=== PATIENT | male | born 2000 | race Caucasian/White ===

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

== ENCOUNTER 2021-02-01 07:13 | Emergency (ER) | payer SELFPAY ==
--- OUTSIDE RECORDS SUMMARY | 2021-02-01 07:16 | XMS REPORT | Continuity of Care Document ---
:2000 Author Organization [facility] t Address [address] [place] [address] Care Team Providers Name Role Phone Nurse, Urgent Attending Clinician Unavailable Lab, Fam Pob I Attending Clinician Unavailable Ebrahim GROUNDS AND NURSERY SPECIALIST Attending Clinician EBRAHIM Attending Clinician Unavailable Doctor Unassigned, Name Attending Clinician Unavailable Pob, Lab Main Attending Clinician Unavailable Rodriguez MD Attending Clinician RODRIGUEZ Attending Clinician Unavailable Payers Payer Name Policy Type Policy Number Effective Date Expiration Date S ource Problems This patient has no known problems. Allergies, Adverse Reactions, Alerts Allergy Allergy Status Severity Reaction(s) Onset Inactive Treating Comm ents Source Name Type Date Date Clinician NO KNOWN Drug Active Univers ALLERGIE Class ity of S [facility] Social History Social Habit Start Date Stop Date Quantity Comments Source Sex [facility] Exposure to SARS-CoV-2 Not sure [facility] [place] (event) [facility] Smoking Status Start Date Stop Date Source Unknown if ever smoked Universit y [facility] Medications Ordered Filled Start Stop Current Ordering Indication Dosage Frequency Signature Comments Components Source Medication Medication Date Date Medication? Clinician (SIG) Name Name forest Yes Take 2 Univ ers n 4-04 tabs day ity of (ZITHROMAX) 00:00: 1Take 1 Ronal as 250 mg 00 tab days Medical tablet 2-5 Branch albuterol Yes 2{puff} Inhale 2 U nivers (VENTOLIN) 4-04 Puffs ity of 90 00:00: every 6 [place] mcg/actuati 00 (six) Medical on inhaler hours as Branc h needed for Wheezing or Shortness of Breath. lioneli Yes Take 2 Univ ers n 4-04 tabs day ity of (ZITHROMAX) 00:00: 1Take 1 Ronal as 250 mg 00 tab days Medical tablet 2-5 Branch albuterol Yes 2{puff} Inhale 2 U nivers (VENTOLIN) 4-04 Puffs ity of 90 00:00: every 6 [place] mcg/actuati 00 (six) Medical on inhaler hours as Branc h needed for Wheezing or Shortness of Breath. azithghadayci Yes Take 2 Univ ers n 4-04 tabs day ity of (ZITHROMAX) 00:00: 1Take 1 Ronal as 250 mg 00 tab days Medical tablet 2-5 Branch albuterol Yes 2{puff} Inhale 2 U nivers (VENTOLIN) 4-04 Puffs ity of 90 00:00: every 6 [place] mcg/actuati 00 (six) Medical on inhaler hours as Branc h needed for Wheezing or Shortness of Breath. azithromyci Yes Take 2 Univ ers n 4-04 tabs day ity of (ZITHROMAX) 00:00: 1Take 1 Ronal as 250 mg 00 tab days Medical tablet 2-5 Branch albuterol Yes 2{puff} Inhale 2 U nivers (VENTOLIN) 4-04 Puffs ity of 90 00:00: every 6 [place] mcg/actuati 00 (six) Medical on inhaler hours as Branc h needed for Wheezing or Shortness of Breath. azithromyci Yes Take 2 Univ ers n 4-04 tabs day ity of (ZITHROMAX) 00:00: 1Take 1 Ronal as 250 mg 00 tab days Medical tablet 2-5 Branch albuterol Yes 2{puff} Inhale 2 U nivers (VENTOLIN) 4-04 Puffs ity of 90 00:00: every 6 [place] mcg/actuati 00 (six) Medical on inhaler hours as Branc h needed for Wheezing or Shortness of Breath. Procedures This patient has no known procedures. Encounters Start End Encounter Admission Attending Care Care Encounter Source Date/Time Date/Time Type Type Clinicians Facility Department ID 2019-09-15 2019-09-15 Letter Nurse, Ronal [facility] [id number] [facility] [place] [facility] 00:00:00 00:00:00 (Out) Urgent HEALTH [id number] [id number] [facility] [phone] [facility] Primary & [address] Specialty Care 2019-09-14 2019-09-14 Laboratory Lab, Adc Fam Piper I [facility] [id number] Univers 12:38:57 12:58:57 Only Douglas Abreu [facility] [id number] ity of [place] [id number] Ronal as Professio [phone] Ar dical nal [address] One 2019-09-14 2019-09-14 Outpatient R [facility] [id number] Univers 12:40:00 12:40:00 ity of [facility] 2019-09-14 2019-09-14 Outpatient R NOYKAMERONLakshmi [facility] [id number] Univers 12:40:00 12:40:00 [facility] ity of [facility] 2019-09-14 2019-09-14 Letter Doctor RY [id number] Univers 00:00:00 00:00:00 (Out) Unassigned, JASON [id number] [place]y of [place] [facility] [id number] Ronal as [phone] [facility] [address] 2019-06-13 2019-06-13 Customer Marketing Manager Piper, Mellisa Lab Main [facility] [id number] Univers 17:00:21 17:15:21 Visit Jace Rodriguez [id number] ity of [id number] Professio [phone] Ar dical [facility] [address] 2019-06-13 2019-06-13 Outpatient R JACE RODRIGUEZ [facility] [id number] Univers 17:00:00 17:00:00 ity of [facility] Results This patient has no known results.
[2021-02-01] MEDS ORDERED: ONDANSETRON 4 MG/2 ML VIAL ONE (07:39)
[2021-02-01] MEDS ORDERED: FAMOTIDINE 20 MG/2 ML VIAL IV ONE (07:40)
[2021-02-01] MEDS ORDERED: NA CHLORIDE 0.9% 1,000 ML ONE (07:40)
[2021-02-01 07:54] LABS: Absolute Lymphocytes (CBC) 0.8 K/uL (0.7-4.9); Basophils % 0.6 % (0-1.3); Hematocrit 43.3 % (39.6-49.0); MPV 9.7 fL (7.6-11.3); RBC Red Blood Cell Count 4.56 M/uL (4.33-5.43)
[2021-02-01 08:10] LABS: Bilirubin Direct 0.3 mg/dL (0-0.2); Potassium 3.3 mmol/L (3.5-5.1); Protein, Total 7.7 g/dL (6.4-8.2)
--- NOTE | 2021-02-01 08:40 | RAD REPORT ---
EXAM DESCRIPTION: Yan Single View02/01/2021 7:59 am CLINICAL HISTORY: Epigastric pain COMPARISON: 2017 FINDINGS: The lungs appear clear of acute infiltrate. The heart is normal size IMPRESSION: No acute abnormalities displayed
[2021-02-01 08:56] LABS: Urine Blood Trace-intact (Negative); Urine Glucose Negative (Negative); Urine Protein Negative (Negative); Urine pH 6.5 (5.0-7.0)
--- NOTE | 2021-02-01 08:58 | ER ---
Nurse's Notes [facility] Name: Delio Crum Age: 20 yrs Sex: Male : 2000 Arrival Date: 02/01/2021 Time: 07:13 Bed 20 Private MD: Diagnosis: Epigastric pain;Nausea with vomiting, unspecified Presentation: 02/01 07:18 Chief complaint: Patient states: he drank alcohol Sunday, a reported 18 beers. Patient ap3 states that he didn't feel well yesterday, stayed home from work, and woke up this morning with continued abdominal pain. Patient denies N/V/D. Coronavirus screen: At this time, the client does not indicate any symptoms associated with coronavirus-19. Ebola Screen: No symptoms or risks identified at this time. Initial Sepsis Screen: Does the patient meet any 2 criteria? No. Patient's initial sepsis screen is negative. Does the patient have a suspected source of infection? No. Patient's initial sepsis screen is negative. Risk Assessment: Do you want to hurt yourself or someone else? Patient reports no desire to harm self or others. Onset of symptoms was January 31, 2021. 07:18 Method Of Arrival: Ambulatory ap3 07:18 Acuity: FRANCISCO 3 ap3 Triage Assessment: 07:20 General: Appears in no apparent distress. Behavior is calm, cooperative. Pain: ap3 Complains of pain in epigastric area Pain does not radiate. Pain currently is 7 out of 10 on a pain scale. at worst was 9 out of 10 on a pain scale. Quality of pain is described as aching, crampy, Pain began gradually, 1 day ago. Is intermittent. Neuro: Level of Consciousness is awake, alert, obeys commands, Oriented to person, place, time, situation, Appropriate for age. Respiratory: Airway is patent Respiratory effort is even, unlabored. GI: Abdomen is flat, non-distended, Reports upper abdominal pain, Patient currently denies diarrhea, nausea, vomiting. Historical: - Allergies: 07:20 No Known Allergies; ap3 - Home Meds: 07:20 None [Active]; ap3 - PMHx: 07:20 None; ap3 - PSHx: 07:20 None; ap3 - Immunization history:: Client reports having NOT received the Covid vaccine. - Social history:: Smoking status: Patient denies any tobacco usage or history of. Patient uses alcohol. Screenin:22 Abuse screen: Denies threats or abuse. Nutritional screening: No deficits noted. ap3 Tuberculosis screening: No symptoms or risk factors identified. Fall Risk None identified. Assessment: 07:25 General: Appears in no apparent distress. Pain: Complains of pain in abdomen. GI: Bowel ellis sounds Abd is soft Abd is non tender Reports lower abdominal pain, nausea. 08:49 Reassessment: Patient is alert, oriented x 3, equal unlabored respirations, skin jg9 warm/dry/pink. Patient states feeling better. Patient states symptoms have improved. Vital Signs: 07:18 BP 138 / 86; Pulse 72; Resp 17; Temp 97.9; Pulse Ox 100% on R/A; Weight 90.72 kg; ap3 Height 5 ft. 11 in. (180.34 cm); Pain 9/10; 08:22 BP 147 / 87; Pulse 79; Resp 18; Pulse Ox 100% on R/A; ellis 07:18 Body Mass Index 27.89 (90.72 kg, 180.34 cm) ap3 ED Course: 07:13 Patient arrived in ED. am2 07:20 Triage completed. ap3 07:22 Arm band placed on right wrist. ap3 07:24 Georges Lazaro PA is PHCP. cp 07:24 Georges Theodore MD is Attending Physician. cp 07:24 Ifeoma Bolanos is Primary Nurse. ellis 07:25 Patient has correct armband on for positive identification. Bed in low position. ellis 07:25 No provider procedures requiring assistance completed. ellis 07:44 Basic Metabolic Panel Sent. ww 07:44 Basic Metabolic Panel Sent. ww 07:44 CBC with Diff Sent. ww 07:44 Hepatic Function Sent. ww 07:44 Lipase Sent. ww 07:44 Initial lab(s) drawn, by in, sent to lab. Inserted saline lock: 20 gauge in left ww antecubital area, using aseptic technique. Blood collected. 07:56 CBC with Diff Sent. ellis 07:56 Hepatic Function Sent. ellis 07:56 Lipase Sent. ellis 07:57 Basic Metabolic Panel Sent. ellis 07:59 XRAY Chest (1 view) In Process Unspecified. EDMS 08:34 US Abdomen Limited In Process Unspecified. EDMS 08:49 No apparent distress. Resting quietly. jg9 08:49 Urine collected: clean catch specimen, clear. jg9 09:23 IV discontinued, intact, Pressure dressing applied. ellis Administered Medications: 07:56 Drug: NS 0.9% 1000 ml Route: IV; Rate: 1 bolus; Site: left antecubital; ellis 08:12 Follow up: Response: No adverse reaction; IV Status: Completed infusion ellis 07:56 Drug: Zofran (Ondansetron) 4 mg Route: IVP; Site: left antecubital; ellis 08:00 Follow up: Response: No adverse reaction ellis 07:56 Drug: Pepcid (famotidine) 20 mg Route: IVP; Site: left antecubital; ellis 08:00 Follow up: Response: No adverse reaction ellis 09:09 Drug: Potassium Effervescent Tablet 50 mEq Route: PO; ellis 09:09 Follow up: Response: No adverse reaction ellis Outcome: 08:57 Discharge ordered by . rey 09:24 Patient left the ED. ellis Signatures: Dispatcher [employer] EDMS Georges Lazaro PA PA cp Kinza David amKinza Kemp RN RN ap3 Bere Cristobal jg9 Rosy Otero RN RN Ifeoma Agee Corrections: (The following items were deleted from the chart) 08:48 08:47 IV Status: Completed infusion; IV Intake: 1000ml jg9 jg9 08:48 08:47 Response: No adverse reaction; Nausea is decreased jg9 jg9 08:48 08:47 Response: No adverse reaction; Nausea is decreased jg9 jg9
--- NOTE | 2021-02-01 08:58 | EDPHYS ---
Physician Documentation [facility] Arti Name: Delio Crum Age: 20 yrs Sex: Male : 2000 Arrival Date: 02/01/2021 Time: 07:13 Bed 20 Private MD: ED Physician Georges Theodore HPI: 02/01 07:32 This 20 yrs old Male presents to ER via Ambulatory with complaints of Abdominal Pain. cp 07:32 The patient presents with abdominal pain in the epigastric area. Onset: The cp symptoms/episode began/occurred yesterday. The symptoms do not radiate. Associated signs and symptoms: Pertinent positives: nausea and vomiting, anorexia, Pertinent negatives: diarrhea, shortness of breath, vomiting blood. 07:32 The symptoms are described as achy, crampy. cp 07:32 Severity of pain: in the emergency department the pain is unchanged despite home cp interventions. Patient admits to consuming 18 beers Sunday with vomiting starting yesterday and causing him to miss work. Historical: - Allergies: 07:20 No Known Allergies; ap3 - Home Meds: 07:20 None [Active]; ap3 - PMHx: 07:20 None; ap3 - PSHx: 07:20 None; ap3 - Immunization history:: Client reports having NOT received the Covid vaccine. - Social history:: Smoking status: Patient denies any tobacco usage or history of. Patient uses alcohol. ROS: 07:40 Abdomen/GI: Positive for abdominal pain, nausea and vomiting, anorexia, Negative for cp diarrhea, constipation, hematemesis. 07:40 Eyes: Negative for injury, pain, redness, and discharge. cp 07:40 Constitutional: Positive for poor PO intake, Negative for body aches, chills, fever. 07:40 ENT: Negative for drainage from ear(s), ear pain, sore throat, difficulty swallowing, difficulty handling secretions. 07:40 Cardiovascular: Negative for chest pain. 07:40 Respiratory: Negative for cough, shortness of breath, wheezing. 07:40 Back: Negative for radiated pain. 07:40 : Negative for urinary symptoms, testicular pain 07:40 Neuro: Negative for altered mental status, headache, weakness. 07:40 All other systems are negative. Exam: 07:45 Constitutional: The patient appears in no acute distress, alert, awake, non-toxic, well cp developed, well nourished, uncomfortable. 07:45 Head/Face: Normocephalic, atraumatic. cp 07:45 Eyes: Periorbital structures: appear normal, Conjunctiva: normal, no exudate, no injection, Sclera: no appreciated abnormality, Lids and lashes: appear normal, bilaterally. 07:45 ENT: External ear(s): are unremarkable, Nose: is normal, Mouth: Lips: moist, Oral mucosa: moist, Posterior pharynx: Airway: no evidence of obstruction, patent. 07:45 Chest/axilla: Inspection: normal, Palpation: is normal, no crepitus, no tenderness. 07:45 Cardiovascular: Rate: normal, Rhythm: regular. 07:45 Respiratory: the patient does not display signs of respiratory distress, Respirations: normal, no use of accessory muscles, no retractions, labored breathing, is not present, Breath sounds: are clear throughout, no decreased breath sounds, no stridor, no wheezing. 07:45 Abdomen/GI: Inspection: abdomen appears normal, Bowel sounds: active, all quadrants, Palpation: soft, in all quadrants, moderate abdominal tenderness, in the epigastric area, rebound tenderness, is not appreciated, voluntary guarding, is elicited in the epigastric area. 07:45 Back: pain, is absent, ROM is normal. 07:45 Neuro: Orientation: to person, place \T\ time. Mentation: is normal, Motor: moves all fours, strength is normal, Sensation: is normal. Vital Signs: 07:18 BP 138 / 86; Pulse 72; Resp 17; Temp 97.9; Pulse Ox 100% on R/A; Weight 90.72 kg; ap3 Height 5 ft. 11 in. (180.34 cm); Pain 9/10; 08:22 BP 147 / 87; Pulse 79; Resp 18; Pulse Ox 100% on R/A; ellis 07:18 Body Mass Index 27.89 (90.72 kg, 180.34 cm) ap3 MDM: 07:25 Patient medically screened. aguila 08:00 Differential diagnosis: appendicitis, cholecystitis, Cholelithiasis, gastritis, GI cp Bleed, non-specific abd pain, pancreatitis, Peptic Ulcer Disease, Perf. Duodenal Ulcer, Perf. Gastric Ulcer. 08:55 Data reviewed: vital signs, nurses notes, lab test result(s), radiologic studies, plain cp films, ultrasound. 08:55 Test interpretation: by ED physician or midlevel provider: plain radiologic studies. cp Counseling: I had a detailed discussion with the patient and/or guardian regarding: the historical points, exam findings, and any diagnostic results supporting the discharge/admit diagnosis, lab results, radiology results, to return to the emergency department if symptoms worsen or persist or if there are any questions or concerns that arise at home. Response to treatment: the patient's symptoms have markedly improved after treatment, VSS. Vomiting resolved and nausea markedly improved. Patient tolerating po fluids. Will discharge to home for continued monitoring. 02/01 07:29 Order name: Basic Metabolic Panel 02/01 07:29 Order name: CBC with Diff; Complete Time: 08:09 02/01 08:09 Interpretation: Reviewed. 02/01 07:29 Order name: Hepatic Function; Complete Time: 08:54 02/01 08:54 Interpretation: Normal except: BILID 0.3; GLOB 3.7. 02/01 07:29 Order name: Lipase; Complete Time: 08:54 02/01 08:54 Interpretation: Abnormal: LIP 52. 02/01 07:30 Order name: Basic Metabolic Panel; Complete Time: 08:54 EDMS 02/01 08:54 Interpretation: Normal except: K 3.3; GLUC 110; GFR 85. 02/01 08:55 Order name: Urine Dipstick-Ancillary; Complete Time: 09:22 EDMS 02/01 09:22 Interpretation: Normal except: UBLD Trace-intact. 02/01 07:29 Order name: IV Saline Lock; Complete Time: 07:44 02/01 07:29 Order name: Labs collected and sent; Complete Time: 07:44 02/01 07:36 Order name: XRAY Chest (1 view); Complete Time: 08:54 02/01 08:54 Interpretation: Report reviewed. 02/01 08:10 Order name: US Abdomen Limited; Complete Time: 09:22 02/01 09:23 Interpretation: Report reviewed. 02/01 07:36 Order name: Urine Dipstick-Ancillary (obtain specimen); Complete Time: 09:09 cp Administered Medications: 07:56 Drug: NS 0.9% 1000 ml Route: IV; Rate: 1 bolus; Site: left antecubital; ellis 08:12 Follow up: Response: No adverse reaction; IV Status: Completed infusion ellis 07:56 Drug: Zofran (Ondansetron) 4 mg Route: IVP; Site: left antecubital; ellis 08:00 Follow up: Response: No adverse reaction ellis 07:56 Drug: Pepcid (famotidine) 20 mg Route: IVP; Site: left antecubital; ellis 08:00 Follow up: Response: No adverse reaction ellis 09:09 Drug: Potassium Effervescent Tablet 50 mEq Route: PO; ellis 09:09 Follow up: Response: No adverse reaction Disposition: 19:00 Co-signature as Attending Physician, Georges Theodore MD I agree with the assessment and [facility] plan of care. Disposition Summary: 02/01/21 08:57 Discharge Ordered Location: Home cp Problem: new cp Symptoms: have improved cp Condition: Stable cp Diagnosis - Epigastric pain cp - Nausea with vomiting, unspecified cp Followup: cp - With: Private Physician - When: 1 - 2 days - Reason: Worsening of condition Discharge Instructions: - Discharge Summary Sheet cp - Abdominal Pain, Adult cp - Nausea and Vomiting, Adult cp Forms: - Medication Reconciliation Form cp - Thank You Letter cp - Antibiotic Education cp - Prescription Opioid Use cp Prescriptions: - Pepcid 20 mg Oral Tablet - take 1 tablet by ORAL route every 12 hours for 5 days; 10 tablet; Refills: 0, cp Product Selection Permitted - promethazine 25 mg Oral Tablet - take 1 tablet by ORAL route every 6 hours As needed; 20 tablet; Refills: 0, cp Product Selection Permitted Signatures: Dispatcher [employer] Georges Tineo MD MD cha Page, Corey, PA PA cp Prokisch, Amanda, RN RN ap3 Delmy-StageIfeoma malave
[2021-02-01] MEDS ORDERED: POTASSIUM 25 MEQ EFFERV TAB ONE (09:07)
--- NOTE | 2021-02-01 09:08 | RAD REPORT ---
EXAM DESCRIPTION: US - Abdomen Exam Limited - 02/01/2021 8:34 am CLINICAL HISTORY: Abdominal pain. COMPARISON: None. FINDINGS: The gallbladder wall is not thickened. A gallstone is not seen. The biliary tree is normal caliber. IMPRESSION: Unremarkable gallbladder ultrasound.
[2021-02-01 09:29] VITALS: TEMP 97.9; O2SAT 100
[2021-02-01 09:30] VITALS: BP 147/87
== END 2021-02-01 09:24 | disposition home or self-care (01) ==
LOC: ER 07:13
DX: R11.2 Nausea with vomiting, unspecified (principal)
CPT/HCPCS: 36415; 71045; 76705; 80048; 80076; 81003; 83690; 85025; 96374; 96375; 99284; J2405; J7030

== ENCOUNTER 2022-10-13 11:18 | Emergency (ER) | payer SELFPAY ==
--- OUTSIDE RECORDS SUMMARY | 2022-10-13 11:22 | XMS REPORT | Continuity of Care Document ---
:2000 Author Organization [facility] t Address [address] [place] [place] [address] Care Team Providers Name Role Phone Dayana Gale Attending Clinician Unavailable Nurse, Ronal Urgent Attending Clinician Unavailable Lab, Adc Fam Pob I Attending Clinician Unavailable Karla Milian Attending Clinician KARLA LOPES Attending Clinician Unavailable Doctor Unassigned, [place] Attending Clinician Unavailable Pob, Adc Lab Main Attending Clinician Unavailable Daphne Rodriguez MD Attending Clinician DAPHNE RODRIGUEZ Attending Clinician Unavailable Physician, No Primary or Family Admitting Clinician Unavaila ble Payers Payer Name Policy Type Policy Number Effective Date Expiration Date S ource Problems This patient has no known problems. Allergies, Adverse Reactions, Alerts Allergy Allergy Status Severity Reaction(s) Onset Inactive Treating Comm ents Source Name Type Date Date Clinician No Known DA Active U 2021-02 [facility] Allergie 0-01 [facility] 00:00: e 00 Medical [place] NO KNOWN Drug Active [facility] ALLERGIE Class ity of [facility] Social History Social Habit Start Date Stop Date Quantity Comments Source [facility] to SARS-CoV-2 Not sure Un iversity [facility] (event) [facility] Smoking Status Start Date Stop Date Source Unknown if ever smoked [facility] Medications Ordered Filled Start Stop Current Ordering Indication Dosage Frequency Signature Comments Components Source Medication Medication Date Date Medication? Clinician (SIG) Name Name joefarhanjojo Yes Take 2 Univ ers n 4-04 tabs day ity of (ZITHROMAX) 00:00: 1Take 1 Ronal as 250 mg 00 tab days Medical tablet 2-5 Branch albuterol Yes 2{puff} Inhale 2 U nivers (VENTOLIN) 4-04 Puffs ity of 90 00:00: every 6 [place] mcg/actuati 00 (six) Medical on inhaler hours as Branc h needed for Wheezing or Shortness of Breath. forest Yes Take 2 Univ ers n 4-04 tabs day ity of (ZITHROMAX) 00:00: 1Take 1 Ronal as 250 mg 00 tab days Medical tablet 2-5 Branch albuterol Yes 2{puff} Inhale 2 U nivers (VENTOLIN) 4-04 Puffs ity of 90 00:00: every 6 [place] mcg/actuati 00 (six) Medical on inhaler hours as Branc h needed for Wheezing or Shortness of Breath. forest Yes Take 2 Univ ers n 4-04 tabs day ity of (ZITHROMAX) 00:00: 1Take 1 Ronal as 250 mg 00 tab days Medical tablet 2-5 Branch albuterol Yes 2{puff} Inhale 2 U nivers (VENTOLIN) 4-04 Puffs ity of 90 00:00: every 6 [place] mcg/actuati 00 (six) Medical on inhaler hours as Branc h needed for Wheezing or Shortness of Breath. forest Yes Take 2 Univ ers n 4-04 tabs day ity of (ZITHROMAX) 00:00: 1Take 1 Ronal as 250 mg 00 tab days Medical tablet 2-5 Branch albuterol Yes 2{puff} Inhale 2 U nivers (VENTOLIN) 4-04 Puffs ity of 90 00:00: every 6 [place] mcg/actuati 00 (six) Medical on inhaler hours as Branc h needed for Wheezing or Shortness of Breath. forest Yes Take 2 Univ ers n 4-04 tabs day ity of (ZITHROMAX) 00:00: 1Take 1 Ronal as 250 mg 00 tab days Medical tablet 2-5 Branch albuterol 2016-0 Yes 2{puff} Inhale 2 U nivers (VENTOLIN) 4-04 Puffs ity of 90 00:00: every 6 [place] mcg/actuati 00 (six) Medical on inhaler hours as Branc h needed for Wheezing or Shortness of Breath. Procedures This patient has no known procedures. Encounters Start End Encounter Admission Attending Care Care Encounter Source Date/Time Date/Time Type Type Clinicians Facility Department ID 2021-11-12 2021-11-12 Emergency EM Baljinder [facility] [id number] [facility] 08:48:00 10:28:00 Dayana Gillespie [facility] 2019-09-15 2019-09-15 Letter Nurse, Ronal [facility] [id number] Univers 00:00:00 00:00:00 (Out) Urgent HEALTH [id number] it y of [place] [id number] [facility] [id number] [facility] Primary & [address] Specialty [facility] 2019-09-14 2019-09-14 Laboratory Lab, Adc Fam Pob I [place] [id number]. [id number] Univers 12:38:57 12:58:57 Only Karla Lopes [facility] [id number] ity of [place] [id number] [facility] as Professio [id number] [facility] [address] 2019-09-14 2019-09-14 Outpatient R MARIANNE [facility] [id number] Univers 12:40:00 12:40:00 RANIA ity of [facility] 2019-09-14 2019-09-14 Letter Doctor RY [id number] Univers 00:00:00 00:00:00 (Out) Unassigned, JASON [id number] ity of [place] [facility] [id number] Ronal as [id number] [facility] [address] 2019-06-13 2019-06-13 Game [employer] Supervisor [place], Adc Lab Main [facility] [id number] Univers 17:00:21 17:15:21 Visit Daphne Rodriguez [id number] [facility] [id number] Milton Cabrera [id number] [address] 2019-06-13 2019-06-13 Outpatient R DAPHNE RODRIGUEZ [facility] [id number] Univers 17:00:00 17:00:00 [facility] Results Test Description Test Time Test Comments Results Result Comments Source HIV 1 2 COMBO AG/AB SCREEN 2021-11-12 10:08:00 Test Item Value Reference Range Interpretation Comme nts HIV 1 2 COMBO AG/AB AB/AG NON REACTIVE NONREACTIVE NONREACTIVE HIV P24 ANTIGEN SCREEN (test code = NONREACT ANTONIO NONREACTIVE HIV [id number]) 1&2 ANTIBODY NO NREACTIVE THE HIV-1 P24 TEST HELPS DISTINGUISH ACU TE HIV-1INFECTIONF ROM ESTABLISHED HIV -1 INFECTION WHEN THE SPECIM EN ISPOSITIVE FOR HIV-1 P24 A NTIGEN. HIV-1 P24 ANTIGEN IS HIGHEST IN THE FIRST FEW WEEKS AFTERINFECTION Notes Date/Time Note Provider Source 2021-11-12 08:55:00-00:00 [facility] ([facility]) EMERGENCY PROVIDER REPORT REPORT#:[id number] REPORT STATUS: Signed DATE:11/12/21 TIME: 0855 PATIENT: CHUCHO LOPEZ UNIT #: [id number] ROOM/BED: AGE: 21 SEX: M PCP PHYS: No Primary or Family Ph ysician SERVICE AUTHOR: Dayana Gale * ALL edits or amendments must be made on the el Content Syndicate: Words on Dem[employer]/computer document * HPI-General Illness General Initial Greet Date/Time 11/12/21 0850 Presentation Chief Complaint __ ("I'm worried I have an STD") Hx Obtained From Patient Free Text HPI Notes Free Text HPI Notes 21-year-old male who denies significant past med ical history presents stating that he wants to be tested for STDs. Pat asaf says that he is concerned that he may have contracted a disease from his partner. Patient denies any known symptoms but just says that he is worried. Denie s specifically any nausea, vomiting, fever, abdominal pain, discharge. Mallorie ent denies any allergies to medication. Review of Systems ROS Statements All systems rev neg except as marked. Review of Systems Constitutional Denies: Chills, Fever. GI Denies: Abdominal pain, Rectal pain, Vomiting. Male Denies: Dysuria, Hematuria, Testicular pain, Pari ticular swelling. Past Medical History - Adult Stated Complaint STD CHECK Allergies Coded Allergies: No Known Allergies (11/12/21) Physical Exam Vital Signs Vital Signs First Documented: Result Date Time Pulse Ox 99 11/13 0755 B/P 142/87 11/13 0755 B/P Mean 105 11/13 0755 O2 Delivery Room air 11/12 854 Temp 36.7 11/12 854 Pulse 89 11/12 854 Resp 16 11/12 854 Last Documented: Result Date Time Pulse Ox 99 11/13 0755 B/P 142/87 11/13 0755 B/P Mean 105 11/13 0755 O2 Delivery Room air 11/13 0755 Temp 36.7 11/12 854 Pulse 89 11/12 854 Resp 16 11/12 854 Review of Vital Signs Unavailable Physical Exam General/Const General/Const Awake, Alert, No acute distress, Cooperative Resp/Chest Respiratory/Chest Breath sounds NL, Breath soun ds = bilat, No respiratory distress Cardiovascular Cardiovascular Heart rate NL, Regular rhythm, H eart sounds NL Abdomen/GI Abdomen/GI Soft, Non-tender, No guarding, No re bound, BS normoactive MS Upper Extrem Upper Extremity/MS No swelling, Non-tender, No erythema, No deformity, Neurologic intact, Vascular intact MS Lower Extrem Lower Ext/Pelvis/MS No swelling, Non-tender, No erythema, No deformity, Neurologic intact, Vascular intact Skin Skin No rash, Warm, Dry, Intact, Turgor NL, No swelling Genitourinary General Exam deferred Neurologic Neurologic Oriented X3, Speech NL, No motor def icits, No sensory deficits, Gait NL Interpretation Diagnostics Lab Results Interpretation Results Laboratory Tests: 11/12 901 Serology HIV Ag/Ab Combo Qual (NONREACTIVE) AB/AG NON RE ACTIVE Microbiology: Date/Time Procedure - Status Source Growth 11/12 901 Neisseria gonorrhoeae DNA Detection - RECD URINE 11/12 901 Chlamydia DNA (LCR) (CARLO) - RECD URINE Re-Evaluation MDM Re-Evaluation/Progress #1 Text/Dict Note Patient chose to have presumptive treatment for GC and chlamydia. He understands that he can chec k his full results on the patient portal but that as this is a send out test he may not be ready unti l late Sunday or Sunday. Patient's rapid HIV test is negative. However, noel stan informed him that he should repeat his testing in 1 to 2 months. We informed him this is especially important if his partner is not tested and treat ed or if he has any further concern. Patient is hematoma cautions voiced und erstanding. Time of Re-Eval 1009 ED Course Medication(s) Ordered Medication(s) Ordered: Anti-Infective Agents Sig/Vincent Start time Last Medication Dose Route Stop Time Status Admin Azithromycin 1,000 MG X1ED STA 11/12 853 DCr 1 0 PO 11/12 854 0931 Ceftriaxone Sodium 1,000 MG X1ED STA 11/13 0754 AC Lidocaine HCl 2.1 ML IM 11/12 1059 Gastrointestinal Drugs Sig/Vincent Start time Last Medication Dose Route Stop Time Status Admin Ondansetron Base 4 MG X1ED STA 11/13 0755 DCr 1 0 PO 11/12 0856 0931 Patient Discharge Departure Vital Signs/Condition Vital Signs First Documented: Result Date Time Pulse Ox 99 11/13 0755 B/P 142/87 11/12 0855 B/P Mean 105 11/12 0855 O2 Delivery Room air 11/12 854 Temp 36.7 11/12 854 Pulse 89 11/13 0755 Resp 16 11/13 0755 Last Documented: Result Date Time Pulse Ox 99 11/12 0855 B/P 142/87 11/12 0855 B/P Mean 105 11/12 0855 O2 Delivery Room air 11/12 0855 Temp 36.7 11/12 854 Pulse 89 11/12 854 Resp 16 11/13 0755 All vital signs available at the time of this en try have been reviewed. Clinical Impression Clinical Impression Primary Impression: Concern about STD in male wi thout diagnosis Disposition Decision Discharge )( Discharged to Home Yes )( Time 1010 )( Date 11/12/21 Discharge/Care Plan Counseled Regarding Diagnosis, Lab resul ts, Need for follow-up, When to return to ED Patient Instructions ED Testing for Suspected ST I Additional Instructions Your rapid HIV test that was done today is negative. We usually recommend that patients be retested in 1 month as well. If you have any further concerns you can follow-up with your primary care physician o r you can return to the ER. Referrals Resource Referral: [facility] - Medical Follow-Up: 1 Week Address: [address] [place] [address] [place] [address] at [address]1 RPT #:[id number] END OF REPORT
[2022-10-13 12:06] LABS: Specific Gravity 1.025 (1.005-1.030); Urine Bacteria <20 /HPF (<20); Urine Bilirubin NEGATIVE (Negative); Urine Blood Negative (Negative); Urine Clarity Clear (Clear); Urine Color Light-Yellow (Yellow); Urine Glucose NEGATIVE (Negative); Urine Mucus Slight /HPF (None Seen); Urine Protein NEGATIVE (Negative); Urine RBC <5 /HPF (None Seen); Urine Urobilinogen Normal (Normal); Urine pH 5.5 (5.0-7.0)
--- NOTE | 2022-10-13 12:41 | EDPHYS ---
Physician Documentation [facility] Name: Delio Crum Age: 22 yrs Sex: Male : 2000 Arrival Date: 10/13/2022 Time: 11:18 Bed IW2 Private MD: ED Physician Hunter Whipple HPI: 10/13 11:50 This 22 yrs old Male presents to ER via Ambulatory with complaints of STD Exposure. cp 11:50 The patient presents with a known STD exposure, did not use protection, the patient has cp no apparent symptoms. 11:50 Associated signs and symptoms: The patient has no apparent associated signs or symptoms.cp Historical: - Allergies: 11:39 No Known Allergies; nj1 - PMHx: 11:39 None; nj1 - PSHx: 11:39 None; nj1 - Immunization history:: Client reports having NOT received the Covid vaccine. - Social history:: Smoking status: Reported history of juuling and/or vaping. ROS: 11:55 Constitutional: Negative for body aches, chills, fever. cp 11:55 Eyes: Negative for injury, pain, redness, and discharge. cp 11:55 ENT: Negative for drainage from ear(s), ear pain, sore throat, difficulty swallowing, difficulty handling secretions. 11:55 Cardiovascular: Negative for chest pain, palpitations. 11:55 Abdomen/GI: Negative for abdominal pain, vomiting, diarrhea, constipation. 11:55 : Negative for urinary symptoms, penile discharge, penile pain, testicular pain 11:55 Neuro: Negative for altered mental status, dizziness, headache, weakness. 11:55 All other systems are negative. Exam: 12:00 Constitutional: The patient appears in no acute distress, alert, awake, comfortable, cp non-toxic, well developed, well nourished. 12:00 Head/Face: Normocephalic, atraumatic. cp 12:00 Eyes: Periorbital structures: appear normal, Conjunctiva: normal, no exudate, no injection, Sclera: no appreciated abnormality, Lids and lashes: appear normal, bilaterally. 12:00 ENT: External ear(s): are unremarkable, Nose: is normal, Mouth: Lips: moist, Oral mucosa: pink and intact, moist, Posterior pharynx: is normal, airway is patent, no erythema, no exudate. 12:00 Neck: ROM/movement: is normal, is supple, without pain, no range of motions limitations. 12:00 Chest/axilla: Inspection: normal. 12:00 Cardiovascular: Rate: normal. 12:00 Respiratory: the patient does not display signs of respiratory distress, Respirations: normal, no use of accessory muscles, no retractions, labored breathing, is not present. 12:00 Abdomen/GI: Exam negative for discomfort, distension, guarding, Inspection: abdomen appears normal. 12:00 Neuro: Orientation: to person, place \T\ time. Mentation: is normal. Vital Signs: 11:38 BP 141 / 77; Pulse 71; Resp 18; Temp 98.9(O); Pulse Ox 100% ; Weight 90.72 kg; Height 5 nj1 ft. 11 in. ; 11:38 Body Mass Index 27.89 (90.72 kg, 180.34 cm) nj1 MDM: 11:43 Patient medically screened. 12:41 Data reviewed: vital signs, nurses notes, lab test result(s). 10/13 11:45 Order name: GC (Navjot/Chl) Probe CX/URE (Do not order if pt is under 13, order Culture cp instead) 10/13 11:45 Order name: Urinalysis W/Microscopic; Complete Time: 12:34 10/13 12:41 Interpretation: Reviewed. 10/13 12:08 Order name: Urine Culture EDMS Administered Medications: No medications were administered Disposition: 13:22 Co-signature as Attending Physician, Hunter Whipple MD I reviewed the patient's care rn provided by the Advanced Practice Provider and agree with the diagnosis and treatment plan. Disposition Summary: 10/13/22 12:41 Discharge Ordered Location: Home cp Problem: new cp Symptoms: have improved cp Condition: Stable cp Diagnosis - Encounter for screening for infections with a predominantly sexual mode of cp transmission Followup: cp - With: Private Physician - When: 2 - 3 days - Reason: Recheck today's complaints Discharge Instructions: - Discharge Summary Sheet cp - Health Maintenance, Male cp - Preventing Sexually Transmitted Infections, Adult cp Forms: - Medication Reconciliation Form cp - Thank You Letter cp - Antibiotic Education cp - Prescription Opioid Use cp - Patient Portal Instructions cp - Leadership Thank You Letter cp Prescriptions: - Doxycycline Monohydrate 100 mg Oral Tablet - take 1 tablet by ORAL route every 12 hours for 10 days; 20 tablet; Refills: 0, cp Product Selection Permitted Signatures: Dispatcher [employer] EDHunter Urias MD MD rn Page, Corey, PA PA cp Jaco, Norma RN RN nj1
--- NOTE | 2022-10-13 12:41 | ER ---
Nurse's Notes [facility] [place] Name: Delio Crum Age: 22 yrs Sex: Male : 2000 Arrival Date: 10/13/2022 Time: 11:18 Bed IW2 Private MD: Diagnosis: Encounter for screening for infections with a predominantly sexual mode of transmission Presentation: 10/13 11:38 Chief complaint: Patient states: STD screening. Denies symptoms, no pain, no discharge. nj Coronavirus screen: Vaccine status: Patient reports being unvaccinated. Ebola Screen: Patient denies travel to an Ebola-affected area in the 21 days before illness onset. Initial Sepsis Screen: Does the patient meet any 2 criteria? No. Patient's initial sepsis screen is negative. Does the patient have a suspected source of infection? No. Patient's initial sepsis screen is negative. Risk Assessment: Do you want to hurt yourself or someone else? Patient reports no desire to harm self or others. Onset of symptoms is unknown. 11:38 Method Of Arrival: Ambulatory [facility] 11:38 Acuity: FRANCISCO 4 [facility] Triage Assessment: 11:40 General: Appears in no apparent distress. comfortable, Behavior is calm, cooperative, nj1 appropriate for age. 11:40 Pain: Denies pain. [facility] Historical: - Allergies: 11:39 No Known Allergies; nj1 - PMHx: 11:39 None; nj1 - PSHx: 11:39 None; nj1 - Immunization history:: Client reports having NOT received the Covid vaccine. - Social history:: Smoking status: Reported history of juuling and/or vaping. Assessment: 13:08 Reassessment: Patient appears in no apparent distress at this time. Patient is alert, nj1 oriented x 3, equal unlabored respirations, skin warm/dry/pink. Pt does not wish to stay for vital signs re assessment. Vital Signs: 11:38 BP 141 / 77; Pulse 71; Resp 18; Temp 98.9(O); Pulse Ox 100% ; Weight 90.72 kg; Height 5 [facility] ft. 11 in. ; 11:38 Body Mass Index 27.89 (90.72 kg, 180.34 cm) [facility] ED Course: 11:21 Patient arrived in ED. im 11:25 Georges Lazaro PA is PHCP. cp 11:25 Hunter Whipple MD is Attending Physician. cp 11:39 Triage completed. nj1 11:39 Arm band placed on left wrist. nj1 11:58 Urinalysis W/Microscopic Sent. [facility] 13:09 Provided Education on: discharge instructions. nj1 13:09 Patient did not have IV access during this emergency room visit. nj1 Administered Medications: No medications were administered Outcome: 12:41 Discharge ordered by MD. cp 13:09 Discharged to home with significant other. nj1 13:09 Condition: stable 13:09 Discharge instructions given to patient, Instructed on discharge instructions, follow up and referral plans. medication usage, safe sex practices, Demonstrated understanding of instructions, follow-up care, medications, Prescriptions given X 1. 13:10 Patient left the ED. nj1 Signatures: Georges Lazaro PA PA Melisa Brown [facility] Layr Sams RN RN nj1 Latricia Mcneil Corrections: (The following items were deleted from the chart) 13:09 13:08 Reassessment: Patient appears in no apparent distress at this time. Patient is nj1 alert, oriented x 3, equal unlabored respirations, skin warm/dry/pink. nj1
[2022-10-13 13:29] VITALS: BP 141/77; TEMP 98.9; O2SAT 100
[2022-10-17 01:48] LABS: C.trachomatis RNA,TMA Detected (Not Detected)
== END 2022-10-13 13:10 | disposition home or self-care (01) ==
LOC: ER 11:18
DX: Z11.3 Encounter for screening for infections with a predominantly sexual mode of transmission (principal)
CPT/HCPCS: 81001; 87086; 87088; 87490; 87590; 99283

== ENCOUNTER → 2023-02-04 | Emergency (ER) | payer SELFPAY ==
--- OUTSIDE RECORDS SUMMARY | 2023-02-04 12:07 | XMS REPORT | Continuity of Care Document ---
Author Name Unknown Address [address] [facility] [address] [facility] Address [address] [facility] [address] [place] [address] Care Team Providers Care Interlibrary Loan Specialist Name Role Phone Nurse, Ronal Urgent Attending Clinician Raul e Lab, Adc Fam Pob I Attending Clinician Karla Oseguera Attending Clinician KARLA LOPES Attending Clinician Unavailable Doctor Unassigned, [place] Attending Clinician U navailable Pob, Adc Lab Main Attending Clinician Jace Oneal MD Attending Clinician JCAE RODRIGUEZ Attending Clinician Unavailable Payers Payer Name Policy Type Policy Number Effective Date Expirati on Date Source Allergies, Adverse Reactions, Alerts Allergy Name Allergy Type Status Severity Reaction(s) Onset Date Inactive Date Treating Clinician Comments Source NO KNOWN ALLERGIE S Drug Class Active [facility] Social History Social Habit Start Date Stop Date Quantity Comments Source Sex Assigned At [facility] Exposure to SARS-CoV-2 (event) Not sure [facility] Smoking Status Start Date Stop Date Source Unknown if ever smoked [facility] Medications Ordered Medication Name Filled Medication Name Start Date Stop Date Current Medication? Ordering Clinician Indication Dosage Frequency Signature (SIG) Comments Components Source azithromyci n (ZITHROMAX) 250 mg tablet 05-16 00:00: 00 Yes Take 2 tabs day 1Take 1 tab days 2-5 [facility] albuterol (VENTOLIN) 90 mcg/actuati on inhaler 05-16 00:00: 00 Yes 2{puff} Inhale 2 Puffs every 6 (six) hours as needed for Wheezing or Shortness of Breath. [facility] 250 mg tablet 05-16 00:00: 00 Yes Take 2 tabs day 1Take 1 tab days 2-5 [facility] albuterol (VENTOLIN) 90 mcg/actuati on inhaler 05-16 00:00: 00 Yes 2{puff} Inhale 2 Puffs every 6 (six) hours as needed for Wheezing or Shortness of Breath. [facility]ithromyci n (ZITHROMAX) 250 mg tablet 05-16 00:00: 00 Yes Take 2 tabs day 1Take 1 tab days 2-5 [facility] albuterol (VENTOLIN) 90 mcg/actuati on inhaler 05-16 00:00: 00 Yes 2{puff} Inhale 2 Puffs every 6 (six) hours as needed for Wheezing or Shortness of Breath. [facility] azithromyci n (ZITHROMAX) 250 mg tablet 05-16 00:00: 00 Yes Take 2 tabs day 1Take 1 tab days 2-5 [facility]erol (VENTOLIN) 90 mcg/actuati on inhaler 05-16 00:00: 00 Yes 2{puff} Inhale 2 Puffs every 6 (six) hours as needed for Wheezing or Shortness of Breath. [facility] azithromyci n (ZITHROMAX) 250 mg tablet 05-16 00:00: 00 Yes Take 2 tabs day 1Take 1 tab days 2-5 [facility] albuterol (VENTOLIN) 90 mcg/actuati on inhaler 05-16 00:00: 00 Yes 2{puff} Inhale 2 Puffs every 6 (six) hours as needed for Wheezing or Shortness of Breath. [facility] Encounters Start Date/Time End Date/Time Encounter Type Admission Type Attending Clinicians Care Facility Care Department Encounter ID Source 2019-09-15 00:00:00 2019-09-15 00:00:00 Letter (Out) Nurse, Ronal Urgent [facility] [id number] [facility] 2019-09-14 12:38:57 2019-09-14 12:58:57 Laboratory Only Lab, Mellisa [facility] Karla Gomes [facility] Office Building One [id number] [facility] 2019-09-14 12:40:00 2019-09-14 12:40:00 Outpatient KARLA TITUS [facility] [id number] [facility] 2019-09-14 00:00:00 2019-09-14 00:00:00 Letter (Out) Doctor Unassigned, [place] [facility] [id number] [facility] 2019-06-13 17:00:21 2019-06-13 17:15:21 Leather Goods Maker Visit Piper, Mellisa Lab Main Jace Rodriguez [facility] Building [id number] [id number] [facility] 2019-06-13 17:00:00 2019-06-13 17:00:00 Outpatient JACE BARROW [facility] [id number] [facility]
--- NOTE | 2023-02-04 12:54 | ER ---
Nurse's Notes [facility] [place] Name: Delio Crum Age: 22 yrs Sex: Male : 2000 Arrival Date: 02/04/2023 Time: 12:03 Bed Waiting Private MD: Diagnosis: Assessment: 02/04 12:41 Reassessment: UNABLE TO LOCATE PATIENT FOR TRIAGE. db ED Course: 12:07 Patient arrived in ED. ts1 12:12 Georges Lazaro PA is PHCP. cp 12:12 Jalil Conner MD is Attending Physician. cp 12:30 Patient's name was called from ER lobby. No response. Unable to locate patient. Will jl7 disposition as left without being seen by a provider. 12:40 Patient's name was called from ER lobby. No response. Unable to locate patient. Will jl7 disposition as left without being seen by a provider. 12:53 Patient's name was called from ER lobby. No response. Unable to locate patient. Will jl7 disposition as left without being seen by a provider. Administered Medications: No medications were administered Outcome: 12:53 Patient left the ED. jl7 Signatures: Georges Lazaro PA PA cp Leal, Jahala, RN RN jl7 Magdalena Elise RN RN Brittney Camara PAS PAS ts1
--- NOTE | 2023-02-04 12:54 | EDPHYS ---
Physician Documentation [facility] Name: Delio Crum Age: 22 yrs Sex: Male : 2000 Arrival Date: 02/04/2023 Time: 12:03 Bed Waiting Private MD: ED Physician Jalil Conner MDM: 02/04 12:23 ED course: patient called in lobby and no response. cp Administered Medications: No medications were administered Disposition: 19:03 Co-signature as Attending Physician, Jalil Conner MD I reviewed the patient's care rt provided by the Advanced Practice Provider and agree with the diagnosis and treatment plan. Disposition Summary: 02/04/23 12:53 Eloped Notes: Disposition: Before Triage jl7 Reason: unknown jl7 Signatures: Georges Lazaro PA PA cp Leal, Jahala RN RN jl7 Jalil Conner MD MD rt
== END ==
LOC: ER 12:03
DX: Z02.9 Encounter for administrative examinations, unspecified (principal)